=== PATIENT | female | born 1975 | race Caucasian/White ===

== ENCOUNTER → 2020-02-28 | Outpatient (CLI) | payer OTHER ==
--- NOTE | 2020-02-28 15:13 | RAD ---
EXAM DESCRIPTION: Ankle,Left 3 Views CLINICAL HISTORY: 44 years Female, CLOSED FRACTURE OF DISTAL LEFT FIBULA COMPARISON: None. Findings: 3 view(s)/radiograph(s) Comminuted distal fibular fracture. There is likely fracture extending to the syndesmosis. The talar dome is unremarkable. The ankle mortise is symmetric. Joint spaces are maintained. No dislocation. No other fracture identified. IMPRESSION: Distal left fibular fracture. Electronically signed by: Vivek Rosas MD 02/28/2020 3:11 PM CDT
== END ==
LOC: RAD 09:45
PROVIDERS: ATTEND Orthopaedic Surgery
DX: S82.832A Other fracture of upper and lower end of left fibula, initial encounter for closed fracture (principal)

== ENCOUNTER → 2020-03-23 | Outpatient (CLI) | payer OTHER, SELFPAY ==
--- NOTE | 2020-03-24 07:49 | RAD ---
EXAM: Ankle,Left 3 Views CLINICAL HISTORY: CLOSED FRACTURE OF LATERAL MALLEOLUS LEFT. TECHNIQUE: AP, lateral and oblique images. COMPARISON STUDY: Left ankle x-rays from February 28, 2020 FINDINGS: An oblique oriented fracture through the distal fibula is again identified. The fracture fragments are displaced 2.5 mm, not significantly changed. Bridging callus is not yet identified. No new fracture or dislocation. IMPRESSION: Left distal fibular fracture in similar presentation to the previous study without bridging callus. Electronically signed by: Jg Vaz MD 03/24/2020 7:48 AM CDT
== END ==
LOC: RAD 09:54
PROVIDERS: ATTEND Orthopaedic Surgery
DX: S82.65XD Nondisplaced fracture of lateral malleolus of left fibula, subsequent encounter for closed fracture with routine healing (principal)